=== PATIENT | female | born 1955 | race Caucasian/White ===

== ENCOUNTER 2017-04-02 22:10 | Inpatient (IN) | payer OTHER ==
[~2017-04-02] VITALS: Ht 160 cm; Wt 60.3 kg
[~2017-04-02 22:10] MED LIST: ALEVE220 MG PO; CLARITIN10 MG PO; FISH OIL 1,0001 EAC7 PO; LASIX40 MG PO; RISEDRONATE SO150 MG PO; VITAMIN C WIT1000 MG PO
[2017-04-03 11:21] VITALS: BP 140/78
[2017-04-03 18:05] VITALS: BP 129/70
[2017-04-03 19:19] LABS: HEMATOCRIT 40.5 % (36.0-46.0); HEMOGLOBIN 13.3 G/DL (11.9-15.5); MCH 30.4 PG (29.0-34.0); MCHC 32.8 G/DL (30.0-36.0); MCV 92.5 FL (83-99); PLATELET COUNT 250 K/uL (156-360); RBC DIS.WIDTH-CV 12.8 % (11.8-14.6); RBC DIS.WIDTH-SD 43.7 % (39-53); RED BLOOD COUNT 4.38 M/uL (3.80-5.20); WHITE BLOOD COUNT 14.1 K/uL (4.1-10.2)
[2017-04-03 19:47] VITALS: BP 137/79
[2017-04-03 19:47] LABS: CHLORIDE 104 MEQ/L (99-109); CREATININE 0.6 MG/DL (0.6-1.3); GFR ESTIMATE (CALCULATED) > 59 mL/min/; GLUCOSE 131 mg/dL (70-99); POTASSIUM 3.5 MEQ/L (3.7-5.4); SODIUM 138 MEQ/L (136-147); UREA NITROGEN (BUN) 14 mg/dL (9-23)
[2017-04-03 23:28] VITALS: BP 104/59
[2017-04-04 03:40] VITALS: BP 115/59
[2017-04-04 07:00] VITALS: BP 104/63
[2017-04-04 07:00] LABS: HEMATOCRIT 36.3 % (36.0-46.0); HEMOGLOBIN 11.8 G/DL (11.9-15.5); MCH 29.9 PG (29.0-34.0); MCHC 32.5 G/DL (30.0-36.0); MCV 91.9 FL (83-99); PLATELET COUNT 253 K/uL (156-360); RBC DIS.WIDTH-CV 12.6 % (11.8-14.6); RBC DIS.WIDTH-SD 42.7 % (39-53); RED BLOOD COUNT 3.95 M/uL (3.80-5.20); WHITE BLOOD COUNT 9.8 K/uL (4.1-10.2)
[2017-04-04 07:27] LABS: CHLORIDE 105 MEQ/L (99-109); CREATININE 0.7 MG/DL (0.6-1.3); GFR ESTIMATE (CALCULATED) > 59 mL/min/; GLUCOSE 140 mg/dL (70-99); SODIUM 140 MEQ/L (136-147); UREA NITROGEN (BUN) 10 mg/dL (9-23)
[2017-04-04 18:28] VITALS: BP 104/57
[2017-04-04 19:28] VITALS: BP 110/55
[2017-04-04 23:33] VITALS: BP 116/58
[2017-04-05 03:36] VITALS: BP 119/66
[2017-04-05 06:48] LABS: HEMATOCRIT 34.7 % (36.0-46.0); HEMOGLOBIN 11.5 G/DL (11.9-15.5); MCH 30.7 PG (29.0-34.0); MCHC 33.1 G/DL (30.0-36.0); MCV 92.5 FL (83-99); PLATELET COUNT 238 K/uL (156-360); RBC DIS.WIDTH-SD 44.3 % (39-53); RED BLOOD COUNT 3.75 M/uL (3.80-5.20); WHITE BLOOD COUNT 8.5 K/uL (4.1-10.2)
[2017-04-05 07:10] LABS: CHLORIDE 109 MEQ/L (99-109); POTASSIUM 3.6 MEQ/L (3.7-5.4); SODIUM 143 MEQ/L (136-147)
[2017-04-05 07:16] LABS: CREATININE 0.7 MG/DL (0.6-1.3); GFR ESTIMATE (CALCULATED) > 59 mL/min/; UREA NITROGEN (BUN) 12 mg/dL (9-23)
[2017-04-05 07:18] LABS: GLUCOSE 98 mg/dL (70-99)
[2017-04-05 08:16] VITALS: BP 152/60
[2017-04-05 08:26] VITALS: BP 134/67
[2017-04-05] MEDS ORDERED: TRAMADOL HCL50 MG PO (09:02)
== END 2017-04-05 11:22 | disposition home or self-care (01) | DRG 743 ==
LOC: ENRESERV 22:10 → 2SOUTH 04-03 08:33 → ENRESERV 04-03 16:36 → 2EAST 04-03 17:46
PROVIDERS: Obstetrics & Gynecology Gynecologic Oncology
DX: N83.291 Other ovarian cyst, right side (principal); N83.292 Other ovarian cyst, left side; N13.5 Crossing vessel and stricture of ureter without hydronephrosis; E78.5 Hyperlipidemia, unspecified; F41.9 Anxiety disorder, unspecified; I10 Essential (primary) hypertension; M19.90 Unspecified osteoarthritis, unspecified site; J44.9 Chronic obstructive pulmonary disease, unspecified
CPT/HCPCS: 80048; 85027; 88307; J0131; J0690; J1100; J1170; J1650; J1885; J2250; J2405; J2710; J2765; J3010; J7120; Q0175